=== PATIENT | female | born 1980 | race Two or more races ===

== ENCOUNTER → 2024-02-08 10:56 | Outpatient (REF) | payer OTHER, SELFPAY | LOC: RAD 10:56 | PROVIDERS: ATTENDING PHYSICIAN Physical Medicine & Rehabilitation Pain Medicine; FAMILY PHYSICIAN Nurse Practitioner Family | DX: N83.209 Unspecified ovarian cyst, unspecified side (principal) | CPT/HCPCS: 76856 ==